=== PATIENT | female | born 1980 | race African-American/Black ===

== ENCOUNTER 2024-03-30 21:32 | Emergency (ER) | payer OTHER ==
[2024-03-30 21:41] VITALS: BP 167/100; PULSE 86; RESP 20; TEMP 98.8; BMI 26.6
[2024-03-30] MEDS ORDERED: ONDANSETRON *ODT* 4 MG TABLET ONE (22:39)
[2024-03-30] MEDS ORDERED: ACETAMINOPHEN 325 MG TABLET (FP) ONE (22:39)
[2024-03-30] MEDS: ACETAMINOPHEN 325 MG TABLET (FP) PO ONE (22:43)
[2024-03-30] MEDS: ONDANSETRON 4 MG TABLET PO ONE (22:44)
== END 2024-03-30 23:51 | disposition home or self-care (01) ==
LOC: JER 21:32
DX: U07.1 COVID-19 (principal); R53.1 Weakness; R11.0 Nausea
CPT/HCPCS: 0241U-QW; 99283-25

== ENCOUNTER 2024-04-07 10:23 | Emergency (ER) | payer OTHER ==
[2024-04-07 10:28] VITALS: BP 134/78; PULSE 61; RESP 18; TEMP 97.9; BMI 26.4
== END 2024-04-07 13:25 | disposition home or self-care (01) ==
LOC: JERFT 10:23
DX: R06.02 Shortness of breath (principal); U07.1 COVID-19; J00 Acute nasopharyngitis [common cold]; R05.9 Cough, unspecified; R09.81 Nasal congestion
CPT/HCPCS: 71046-TC-FY; 84703; 99284-25